=== PATIENT | male | born 1955 | race Caucasian/White ===

== ENCOUNTER 2017-05-07 13:06 | Inpatient (IN) | payer BC ==
[~2017-05-07] VITALS: Ht 182.9 cm; Wt 100.6 kg
[2017-06-17] VITALS (9 sets, daily range): BP systolic 120–154; BP diastolic 62–79; PULSE 80–98; TEMP 98–98.8
[2017-06-17] MEDS ORDERED: PRINZIDE 12.5 M1 TA1 PO (05:52)
[2017-06-17 06:19] LABS: BASO % 0.6 % (0.0-2.0); EOS # 0.3 (0.0-0.7); EOS % 3.8 % (0-4.0); GRAN # 4.4 (1.4-6.5); HEMATOCRIT 41.4 % (42.0-52.0); HEMOGLOBIN 15.2 g/dl (13.5-18.0); LYMPH # 1.7 (1.2-3.4); LYMPH % 24.1 % (20.0-51.0); MEAN CELL VOLUME 87 fl (80.0-100.0); MEAN CORPUSCULAR HEMOGLOBIN 32 pg (27.0-31.0); MEAN CORPUSCULAR HGB CONC 37 g/dl (33.0-37.0); MEAN PLATELET VOLUME 8.6 fl (7.4-10.4); MONO # 0.8 (0.1-0.6); MONO % 10.4 % (1.7-9.3); PLATELET COUNT 193 K/mm3 (130-400); RED BLOOD COUNT 4.74 M/mm3 (4.20-5.60); REDCELL DISTRIBUTION WIDTH-CV 12.1 % (11.5-14.5); WHITE BLOOD COUNT 7.2 K/mm3 (4.8-10.8)
[2017-06-17 06:33] LABS: ADJUSTED CALCIUM 8.9 mg/dL (8.4-10.2); ALBUMIN 4.3 gm/dL (3.5-5.0); BILIRUBIN,TOTAL 1.4 mg/dL (0.0-1.0); CALCIUM 9.1 mg/dL (8.4-10.2); CREATININE, serum 0.91 mg/dL (0.66-1.25); POTASSIUM 3.6 mmol/L (3.4-5.0); TOTAL PROTEIN 7.5 gm/dL (6.4-8.2)
[2017-06-18] VITALS (7 sets, daily range): BP systolic 114–137; BP diastolic 57–77; PULSE 62–97; TEMP 98–98.8
[2017-06-18] MEDS ORDERED: AMBIEN 10MG10 MG PO (06:04)
[2017-06-18 06:12] LABS: BASO % 0.1 % (0.0-2.0); GRAN # 14.7 (1.4-6.5); GRAN % 88.9 % (42.2-75.2); LYMPH # 0.7 (1.2-3.4); MEAN CELL VOLUME 88 fl (80.0-100.0); MEAN CORPUSCULAR HGB CONC 36 g/dl (33.0-37.0); MEAN PLATELET VOLUME 8.9 fl (7.4-10.4); MONO # 1.1 (0.1-0.6); MONO % 6.4 % (1.7-9.3); PLATELET COUNT 195 K/mm3 (130-400); RED BLOOD COUNT 4.06 M/mm3 (4.20-5.60); REDCELL DISTRIBUTION WIDTH-CV 11.9 % (11.5-14.5); WHITE BLOOD COUNT 16.6 K/mm3 (4.8-10.8)
[2017-06-18 06:18] LABS: HEMATOCRIT 35.7 % (42.0-52.0); HEMOGLOBIN 12.8 g/dl (13.5-18.0); MEAN CORPUSCULAR HEMOGLOBIN 32 pg (27.0-31.0)
[2017-06-18 06:44] LABS: CALCIUM 8.1 mg/dL (8.4-10.2); CREATININE, serum 0.78 mg/dL (0.66-1.25); POTASSIUM 4.2 mmol/L (3.4-5.0)
[2017-06-19 00:58] VITALS: BP 116/59; PULSE 76; TEMP 98.1
[2017-06-19 04:38] VITALS: BP 120/67; PULSE 66; TEMP 97.6
[2017-06-19 10:19] VITALS: BP 139/72; PULSE 88; TEMP 98.1
[2017-06-19 13:21] VITALS: BP 121/68; PULSE 65; TEMP 97.8
== END 2017-06-19 15:42 | disposition home or self-care (01) | DRG 707 ==
LOC: INPTSU 06-17 05:37 → JCC 06-17 05:37 → SURG 06-17 07:30 → JCC 06-17 12:15 → SURG 06-17 18:55
PROVIDERS: Urology
PROC: 8E0W4CZ Robotic Assisted Procedure of Trunk Region, Percutaneous Endoscopic Approach (ICD-10-PCS; 2017-06-17)
PROC: 0VT04ZZ Resection of Prostate, Percutaneous Endoscopic Approach (ICD-10-PCS; principal; 2017-06-17 07:30)
DX: C61 Malignant neoplasm of prostate (principal); E87.1 Hypo-osmolality and hyponatremia; I10 Essential (primary) hypertension
CPT/HCPCS: A9284; C1713; J0330; J0690; J1100; J1170; J1885; J2270; J2405; J2704; J2710; J3010; J7120